=== PATIENT | female | born 1940 | race Caucasian/White ===

== ENCOUNTER 2018-03-29 14:03 | Emergency (ER) | payer MEDICARE ==
[2018-03-29] MEDS: DIPHTH,PERTUSS(ACELL),TET TOX 0.5 ML DISP.SYRIN. VAX IM (14:45)
[2018-03-29] MEDS: LIDOCAINE 1%/EPI 1:100,000 20 ML VIAL. INJ (14:45)
== END 2018-03-29 15:32 | disposition home or self-care (01) ==
LOC: ER 15:32
DX: S91.312A Laceration without foreign body, left foot, initial encounter (principal); K21.9 Gastro-esophageal reflux disease without esophagitis; I48.91 Unspecified atrial fibrillation; E03.9 Hypothyroidism, unspecified; I25.2 Old myocardial infarction; W20.8XXA Other cause of strike by thrown, projected or falling object, initial encounter; Y93.89 Activity, other specified; Y99.8 Other external cause status; Y92.89 Other specified places as the place of occurrence of the external cause
CPT/HCPCS: 12011; 99283-25; J3490